=== PATIENT | male | born 1980 | race Caucasian/White ===

== ENCOUNTER 2016-08-06 10:23 | Emergency (ER) | payer OTHER ==
[~2016-08-06] VITALS: Ht 182.9 cm; Wt 81.0 kg
[2016-08-06 10:30] VITALS: BP 134/97; PULSE 89; RESP 16; TEMP 98.2; O2SAT 97
[2016-08-06] MEDS ORDERED: ADDE30TA PO (11:19)
[2016-08-06] MEDS ORDERED: LISI10TA3 PO (11:19)
--- NOTE | 2016-08-06 11:21 | PD ---
HPI Chief Complaint: Musculoskeletal Complaint Time Seen by Provider: 11:16 Travel History International Travel<30 days: No Contact w/Intl Traveler<30days: No Traveled to known affect area: No History of Present Illness HPI Patient is a 35-year-old male presenting to emergency for evaluation of right shoulder pain. Patient states the pain started on 07/28/16. 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 He denies any other injury or trauma. That said only think he can equated to. The pain radiates up from his shoulder to his neck and to the scapula and then down his arm. He states the pain feels as it' s grabbing, aching and sore. He reports being unable to get comfortable. Patient was seen and evaluated in urgent care center, an x-ray was performed that was negative for fracture. He followed up with his primary doctor and has a prescription for an MRI. He states he was told by his insurance company to come to the emergency department. He reports his pain as a 7 out of 10, it is unrelieved by diclofenac, ibuprofen, Robaxin. 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 Space doses at least 4 to 6 hours if more than once/day dosing. Lisinopril 10 Mg Tab 10 Mg PO DAILY Review of Systems Except as stated in HPI: all other systems reviewed are Neg Musculoskeletal: Positive: Myalgias, Cramping, Pain Physical Exam Narrative GENERAL: Well-nourished, well-developed patient. SKIN: Warm and dry. HEAD: Normocephalic. EYES: No scleral icterus. No injection or drainage. NECK: Supple, trachea midline. No JVD or lymphadenopathy. CARDIOVASCULAR: Regular rate and rhythm without murmurs, gallops, or rubs. RESPIRATORY: Breath sounds equal bilaterally. No accessory muscle use. GASTROINTESTINAL: Abdomen soft, non-tender, nondistended. MUSCULOSKELETAL: No cyanosis, or edema. Full range of motion in right shoulder , positive radial pulse, brisk less than 3 second capillary refill. Tenderness to palpation medial to right scapula, right cervical paraspinal musculature, right shoulder. NEUROLOGICAL: Awake and alert. Cranial nerves II through XII intact. Motor and sensory grossly within normal limits. Five out of 5 muscle strength in all muscle groups. Normal speech. BACK: Nontender without obvious deformity. No CVA tenderness. Data Data Last Documented VS Vital Signs Date Time Temp Pulse Resp B/P Pulse Ox O2 Delivery O2 Flow Rate FiO2 08/06/16 10:30 98.2 89 16 134/97 97 [facility] Medical Decision Making Medical Screen Exam Complete: Yes Emergency Medical Condition: Yes Interpretation(s) Vital Signs Date Time Temp Pulse Resp B/P Pulse Ox O2 Delivery O2 Flow Rate FiO2 08/06/16 10:30 98.2 89 16 134/97 97 Differential Diagnosis Tendinitis versus tear versus sprain versus strain versus other Narrative Course Patient is a 35-year-old male presenting to him at our evaluation of right shoulder pain. Patient has been seen and evaluated in urgent care setting as well as by his primary doctor. He was told that he would need an MRI because he likely has a torn rotator cuff. Patient has a prescription but has not had the MRI performed. He states his insurance company told him to come to the emergency department. He is neurovascularly intact. He was encouraged to obtain MRI and follow-up as outpatient with orthopedic surgeon. He was encouraged to continue the exercises he was given to do by the urgent care center. Patient be provided with a prescription for pain medication in order to alleviate the pain when he is trying to sleep. He was encouraged to follow- up with his primary care provider as well. Patient verbalized understanding of instructions. Patient is stable for discharge. Diagnosis Primary Impression: Tendinitis of right shoulder Referrals: Orthopaedic Surgeon Patient Instructions: General Instructions, Rotator Cuff Injury (ED), Rotator Cuff Tendinitis (ED) Additional Instructions: Follow-up with your primary doctor Have MRI performed as outpatient Take medications as directed Do not drive or operate machinery when taking narcotic pain medications Return to emergency department for any new or worsening symptoms Continue exercises that he was given by the urgent care center Med/Other Pt SpecificInfo: Prescription(s) given Scripts Tramadol 50 Mg Tab50 Mg PO Q6H PRN (PAIN) #10 TAB Ref 0 Prov:Ora Rojas DO 08/06/16 Disposition: 01 DISCHARGE HOME Condition: Stable Helga Guerrero Aug 06, 2016 11:21
[2016-08-06] MEDS ORDERED: TRAM50TA PO (11:22)
== END 2016-08-06 11:35 | disposition home or self-care (01) ==
LOC: PHED 10:23 → PHEFT 11:35
DX: M77.9 Enthesopathy, unspecified (principal); I10 Essential (primary) hypertension; F17.210 Nicotine dependence, cigarettes, uncomplicated; X50.3XXA Overexertion from repetitive movements, initial encounter; Y93.89 Activity, other specified; Y92.89 Other specified places as the place of occurrence of the external cause; Y99.0 Civilian activity done for income or pay
CPT/HCPCS: 99283